=== PATIENT | female | born 1950 | race Caucasian/White ===

== ENCOUNTER 2019-06-04 14:41 | Outpatient (CLI) | payer MEDICARE ==
--- NOTE | 2019-06-04 16:45 | RAD ---
CHEST TWO VIEWS: 06/04/19 Mild cardiomegaly is about the same as before. There is no congestive change or pleural effusion. There appear to be some fractures of the right fourth and fifth ribs posterolaterally, but I cannot t ell if this is new or old. It would not surprise me if they were old. Correlate with current symptoms . The lungs are fully inflated. It is a little hazier in the right base than elsewhere on the PA view , though I do not see a distinct infiltrate on the lateral. The lungs are hyperexpanded. The left adan g is clear. IMPRESSION: 1. Cardiomegaly, stable. No congestive change. 2. Fractures of the right fourth and fifth ribs, possibly old. Correlate with clinical exam. 3. Right basilar haziness. This may just be due to the overlying soft tissues, however, if there were signs and symptoms of pneumonia, the area may need follow-up. POS: HOME
== END 2019-06-04 14:42 | disposition home or self-care (01) ==
LOC: BURRAD 14:41
PROVIDERS: ATTEND Internal Medicine Cardiovascular Disease
DX: W19.XXXA Unspecified fall, initial encounter (principal)
CPT/HCPCS: 71046